=== PATIENT | male | born 1985 | race Caucasian/White ===

== ENCOUNTER 2016-12-23 06:44 | Emergency (ER) | payer OTHER ==
[~2016-12-23] VITALS: Ht 177.8 cm; Wt 77.1 kg
--- NOTE | 2016-12-23 06:50 | NUR ---
31 yo male bb self. pt is alert x 3, c/o left thumb dog bite. pt ambulated to er bed, skin warm and dry, rr even and unlabored. awaiting orders from [facility], will continue to monitor
[2016-12-23] MEDS ORDERED: TDAP [DIPH/PERTUSSIS/TET] 0.5 ML VIAL IM ONE ×3 (07:17→07:31)
[2016-12-23] MEDS ORDERED: AMOX/CLAVULANATE 875 MG TABLET PO ONE (07:30)
[2016-12-23] MEDS ORDERED: AMOX/CLAVULANATE 875 MG TABLET ONE (07:30)
[2016-12-23 07:35] VITALS: BP 128/58
--- NOTE | 2016-12-23 07:39 | NUR ---
Patient discharged to home in stable condition. Written and verbal after care instructions given. Patient verbalizes understanding of instruction. pt ambulatory with a steady gait
== END 2016-12-23 07:35 | disposition home or self-care (01) ==
LOC: ER 06:44
DX: S61.052A Open bite of left thumb without damage to nail, initial encounter (principal); F41.9 Anxiety disorder, unspecified; Z23 Encounter for immunization; W54.0XXA Bitten by dog, initial encounter; Y93.89 Activity, other specified; Y92.89 Other specified places as the place of occurrence of the external cause; Y99.9 Unspecified external cause status
CPT/HCPCS: 73140-TC; 90715; A4606; Z7610

== ENCOUNTER 2021-07-24 01:28 | Emergency (ER) | payer OTHER ==
[~2021-07-24] VITALS: Ht 180.3 cm; Wt 77.1 kg
[2021-07-24 01:28] VITALS: BP 111/65
[2021-07-24] MEDS ORDERED: AMOX/CLAVULANATE 875 MG TABLET ONE (01:53)
[2021-07-24] MEDS ORDERED: AMOX/CLAVULANATE 875 MG TABLET PO ONE (02:00)
[2021-07-24] MEDS ORDERED: AMOX-430 PO (02:05)
--- NOTE | 2021-07-24 02:20 | NUR ---
Patient discharged to home in stable condition. Written and verbal after care instructions given. Patient verbalizes understanding of instruction.
== END 2021-07-24 02:20 | disposition home or self-care (01) ==
LOC: ER 01:34
DX: S61.512A Laceration without foreign body of left wrist, initial encounter (principal); F41.9 Anxiety disorder, unspecified; W54.0XXA Bitten by dog, initial encounter; Y93.89 Activity, other specified; Y92.89 Other specified places as the place of occurrence of the external cause; Y99.8 Other external cause status
CPT/HCPCS: 73110